=== PATIENT | male | born 2005 | race American Indian/Alaskan Native ===

== ENCOUNTER 2023-11-07 17:49 | Emergency (ER) | payer SELFPAY | END 2023-11-07 18:48 | disposition home or self-care (01) | LOC: MW.ED 17:49 | DX: L03.112 Cellulitis of left axilla (principal); L02.412 Cutaneous abscess of left axilla; L73.9 Follicular disorder, unspecified; Z79.899 Other long term (current) drug therapy; Z75.8 Other problems related to medical facilities and other health care | CPT/HCPCS: 99282; 99283 ==

== ENCOUNTER 2023-11-18 14:23 | Emergency (ER) | payer SELFPAY ==
[2023-11-18] MEDS: Lidocaine 1% PF 2 ML SDV INJECT ONE (14:49)
== END 2023-11-18 15:37 | disposition home or self-care (01) ==
LOC: MW.ED 14:23
DX: L02.412 Cutaneous abscess of left axilla (principal); Z75.8 Other problems related to medical facilities and other health care
CPT/HCPCS: 10060; 99283; 99283-25; J3490

== ENCOUNTER 2024-02-12 11:34 | Emergency (ER) | payer SELFPAY ==
[2024-02-12 14:02] LABS: CORONAVIRUS COVID-19 NAA POSITIVE (NEGATIVE); INFLUENZA A NAA NEGATIVE (NEGATIVE); INFLUENZA B NAA NEGATIVE (NEGATIVE); RESPIRATORY SYNCYTIAL VIR NAA NEGATIVE (NEGATIVE)
== END 2024-02-12 14:38 | disposition home or self-care (01) ==
LOC: MW.ED 11:34
DX: U07.1 COVID-19 (principal); Z75.8 Other problems related to medical facilities and other health care
CPT/HCPCS: 0241U; 87651; 99284; 99283